=== PATIENT | male | born 1955 | race Caucasian/White ===

== ENCOUNTER 2016-09-06 17:20 | Emergency (ER) | payer OTHER ==
[2016-09-06] MEDS ORDERED: NS 1,000 ML IV ONE (17:29)
[2016-09-06 17:39] LABS: % IMMATURE GRANULYOCYTES 0.4 % (0.0-1.1); ABSOLUTE IMMATURE GRANULOCYTES 0.06 10^3/uL (0.00-0.10); ADD DIFF? NO; ADD MORPH? NO; ADD SCAN? NO; ATYPICAL LYMPHOCYTE FLAG 0 (0-99); FRAGMENT RBC FLAG 0 (0-99); HEMATOCRIT 40.6 % (40.0-51.0); HEMOGLOBIN 13.6 g/dL (13.7-17.5); LEFT SHIFT FLG 0 (0-99); LIPEMIA HEMOLYSIS FLAG 80 (0-99); MEAN CELL HEMOGLOBIN 29.3 pg (27.9-34.1); MEAN CELL HEMOGLOBIN CONCENTR. 33.5 g/dL (32.4-36.7); MEAN CELL VOLUME 87.5 fL (81.5-99.8); MEAN PLATELET VOLUME 10.3 fL (8.7-11.7); PLATELET CLUMPS FLAG 0 (0-99); PLATELET COUNT 337 10^3/uL (150-400); RED BLOOD CELL COUNT 4.64 10^6/uL (4.40-6.38); RED CELL DISTRIBUTION WIDTH 13.4 % (11.5-15.2)
--- NOTE | 2016-09-06 17:44 | EDPHY ---
HPI/HX/ROS/PE/MDM Narrative: CHIEF COMPLAINT: Syncope, confusion HPI: The patient is a 61-year-old male with no significant past medical history. Per EMS in the family, the patient apparently had had several alcoholic drinks this evening. He got up from a seated position to pay a work man when he apparently passed out. This was not witnessed by family. He did lose consciousness but suffered no injuries in the fall. When he awoke he was confused. The patient denies any complaints. He does not remember what happened. Glucose on scene was normal per EMS. REVIEW OF SYSTEMS: Aside from elements discussed in the HPI, a comprehensive 10-point review of systems was reviewed and is negative. PMH: Includes diabetes, hypertension SOCIAL HISTORY: Admits to alcohol use. . Works as an addiction counselor. PHYSICAL EXAM: General:Patient is alert, in no acute distress. ENT:Eyes are normal to inspection. ENT inspection normal. Neck: Normal inspection. Full range of motion. Respiratory:No respiratory distress. Breath sounds normal bilaterally. Cardiovascular: Regular rate and rhythm. Strong peripheral pulses. Normal cap refill. Abdomen:The abdomen is nontender to palpation. There are no peritoneal signs. There are normal bowel sounds. Back: Normal to inspection. No tenderness to palpation. Skin: Normal color. No rash. Warm and dry. Extremities: Normal appearance. Full range of motion. Neuro: Oriented x3. Normal motor function. Normal sensory function. ED Course: Patient was observed in the ER for several hours and mental status remains normal. On re-evaluation at 7:30 p.m., the patient is comfortable and is ambulatory without assistance. I explained these results and he would like to go home. EKG was ordered and interpreted by myself, sinus rhythm. Please see [employer] system for official reading. MDM: This patient presents with an episode of syncope likely secondary to getting up follows up from a couch and somewhat severe alcohol intoxication. We performed an extensive workup in the emergency department is negative for signs of acute coronary syndrome, arrhythmia, pulmonary embolus, head trauma or stroke. Family is in agreement with the plan to be discharged home. - Data Points Imaging Results: Imaging Impressions Head CT 09/06/16 17:29 Impression: Negative noncontrast CT of the brain. Results called to Dr. Jude Knutson at 6:50 PM at the time of the interpretation. Laboratory Results: Laboratory Results 09/06/16 17:27 09/06/16 17:27 09/06/16 09/06/16 17:27 17:27 WBC 13.92 10^3/uL H 10^3/uL (3.80-9.50) RBC 4.64 10^6/uL 10^6/uL (4.40-6.38) Hgb 13.6 g/dL L g/dL (13.7-17.5) Hct 40.6 % % (40.0-51.0) MCV 87.5 fL fL (81.5-99.8) MCH 29.3 pg pg (27.9-34.1) MCHC 33.5 g/dL g/dL (32.4-36.7) RDW 13.4 % % (11.5-15.2) Plt Count 337 10^3/uL 10^3/uL (150-400) MPV 10.3 fL fL (8.7-11.7) Neut % (Auto) 65.9 % % (39.3-74.2) Lymph % (Auto) 23.9 % % (15.0-45.0) [place] % (Auto) 7.2 % % (4.5-13.0) Eos % (Auto) 2.2 % % (0.6-7.6) Baso % (Auto) 0.4 % % (0.3-1.7) Nucleat RBC Rel Count 0.0 % % (0.0-0.2) Absolute Neuts (auto) 9.17 10^3/uL H 10^3/uL (1.70-6.50) Absolute Lymphs (auto) 3.33 10^3/uL H 10^3/uL (1.00-3.00) Absolute Monos (auto) 1.00 10^3/uL H 10^3/uL (0.30-0.80) Absolute Eos (auto) 0.31 10^3/uL 10^3/uL (0.03-0.40) Absolute Basos (auto) 0.05 10^3/uL 10^3/uL (0.02-0.10) Absolute Nucleated RBC 0.00 10^3/uL 10^3/uL (0-0.01) Immature Gran % 0.4 % % (0.0-1.1) Immature Gran # 0.06 10^3/uL 10^3/uL (0.00-0.10) Sodium 145 mEq/L H mEq/L (134-144) Potassium 4.2 mEq/L mEq/L (3.5-5.2) Chloride 104 mEq/L mEq/L (97-110) Carbon Dioxide 18 mEq/l L mEq/l (22-31) Anion Gap 23 mEq/L H mEq/L (8-16) BUN 29 mg/dL H mg/dL (7-23) Creatinine 1.9 mg/dL H mg/dL (0.7-1.3) Estimated GFR 36 Glucose 139 mg/dL H mg/dL (70-100) Calcium 10.2 mg/dL mg/dL (8.5-10.4) Troponin I < 0.012 ng/mL ng/mL (0-0.034) Ethyl Alcohol 168 mg/dL H mg/dL (0-10) Medications Given: Discontinued Medications Sodium Chloride (Ns) 1,000 mls @ 0 mls/hr IV ONCE ONE; Wide Open PRN Reason: Protocol Stop: 09/06/16 17:30 Last Admin: 09/06/16 17:48 Dose: 1,000 mls Ibuprofen (Motrin) 600 mg PO EDNOW ONE Stop: 09/06/16 19:22 Last Admin: 09/06/16 19:48 Dose: Not Given General Initial Vital Signs: Initial Vital Signs Temperature (C) 36.8 C 09/06/16 17:20 Heart Rate 70 09/06/16 17:20 Respiratory Rate 18 09/06/16 17:20 Blood Pressure 118/60 09/06/16 17:20 O2 Sat (%) 96 09/06/16 17:20 O2 Delivery Mode Room Air Allergies/Adverse Reactions: No Known Allergies Allergy (Verified 09/06/16 17:31) Home Medications: Medication Instructions Recorded LEXAPRO 03/16/11 Metformin HCl 03/16/11 VERAPAMIL HCL 03/16/11 Glimepiride 09/06/16 Losartan Potassium 09/06/16 Departure - Departure Disposition: Home, Routine, Self-Care Clinical Impression: Syncope, Alcohol intoxication Condition: Good Instructions: Syncope (ED) Additional Instructions: Follow-up with your primary doctor within 72 hours. Return to the Emergency Department for fever, chest pain, shortness of breath, increasing pain or other worsening of condition. Referrals: Patient,NotPresent [Unknown] - As per Instructions
--- NOTE | 2016-09-06 17:48 | CPEKG ---
Heart Rate: 66 RR Interval: 909 P-R Interval: 184 QRSD Interval: 98 QT Interval: 408 QTC Interval: [address]: [address]: [address]: 21 EKG Severity - NORMAL ECG - EKG Impression: SINUS RHYTHM EKG Impression: Probable incomplete left bundle branch block Electronically Signed By: Surinder Conklin 08-Sep-2016 10:54:02
[2016-09-06 18:05] LABS: ANION GAP 23 mEq/L (8-16); CALCIUM 10.2 mg/dL (8.5-10.4); CARBON DIOXIDE 18 mEq/l (22-31); CHLORIDE 104 mEq/L (97-110); CREATININE 1.9 mg/dL (0.7-1.3); ETHANOL SERUM 168 mg/dL (0-10); GLOMERULAR FILTRATION RATE 36; GLUCOSE 139 mg/dL (70-100); POTASSIUM 4.2 mEq/L (3.5-5.2); SODIUM 145 mEq/L (134-144)
[2016-09-06 18:16] LABS: TROPONIN I < 0.012 ng/mL (0-0.034)
[2016-09-06] MEDS ORDERED: IBUPROFEN 600 MG TAB PO ONE (19:21)
[2016-09-06 19:48] VITALS: BP 135/68; PULSE 73; RESP 18; TEMP 98.1; O2SAT 93
== END 2016-09-06 19:36 | disposition home or self-care (01) ==
LOC: EDUNIT#
DX: R55 Syncope and collapse (principal); F10.129 Alcohol abuse with intoxication, unspecified; I10 Essential (primary) hypertension; E11.9 Type 2 diabetes mellitus without complications; E86.9 Volume depletion, unspecified
CPT/HCPCS: G0480